=== PATIENT | male | born 1965 | race Caucasian/White ===

== ENCOUNTER → 2017-12-10 08:32 | Outpatient (CLI) | payer OTHER, SELFPAY ==
[2017-12-10 13:56] LABS: Anion Gap 17.4 mEq/L (5-15); Blood Urea Nitrogen 14 mg/dL (7-18); Calcium 8.2 mg/dL (8.5-10.1); Carbon Dioxide 24 mmol/L (21.0-32.0); Chloride 105 mmol/L (98-107); Creatinine,Serum 1.05 mg/dL (0.70-1.30); Estimated Glomerular Filt Rate 74 ml/min (>60); GFR (African American) 90 ML/MIN (>60); Glucose 141 mg/dL (74-106); Potassium 4.4 mmoL/L (3.5-5.1); Sodium 142 mmol/L (136-145)
[2017-12-10 14:21] LABS: Hemoglobin A1C 6.1 % (0.0-7.0)
== END ==
PROVIDERS: Visit Provider Emergency Medicine
DX: E11.9 Type 2 diabetes mellitus without complications (principal); N18.9 Chronic kidney disease, unspecified
CPT/HCPCS: 36415; 80048; 83036

== ENCOUNTER → 2018-06-02 08:24 | Outpatient (CLI) | payer OTHER, SELFPAY ==
[2018-06-02 08:30] LABS: Microscopic, Urine URINE MICROSCOPIC (MICROSCOPIC)
[2018-06-02 13:43] LABS: Appearance,Urine CLEAR (Clear); Bilirubin,Urine Negative (Negative); Blood, Urine 1+ (Negative); Color,Urine YELLOW (Yellow); Glucose,Urine (UA) Negative (Negative); Ketones,Urine Negative (Negative); Leukocyte Esterase,Urine Negative (Negative); Nitrate,Urine Negative (Negative); PH,Urine 5.5 (5.0-8.5); Protein,Urine Negative (Negative); Urobilinogen,Urine 0.2 EU/dl (0.2)
[2018-06-02 13:52] LABS: Bacteria,Urine Trace /lpf; RBC,Urine Occasional #/hpf (0-3); Squamous Epithelial Cell,Urine Occasional #/hpf (0-5)
[2018-06-02 14:03] LABS: Alanine Aminotransferase 32 U/L (12-78); Aspartate Amino Transferase 12 U/L (15-37); Creatinine,Serum 1.17 mg/dL (0.70-1.30); Estimated Glomerular Filt Rate 65 ml/min (>60); GFR (African American) 79 ML/MIN (>60)
[2018-06-02 14:33] LABS: Basophils # 0.1 K/mm3 (0-0.2); Eosinophils # 0.3 K/mm3 (0.0-0.4); Eosinophils % 2.8 % (0.1-12.0); Hemoglobin 17.5 g/dL (14.1-18.0); Lymphocytes # 1.4 K/mm3 (0.7-4.5); Lymphocytes % 14.5 % (10-50); Mean Corpuscular HGB Conc 31.8 g/dL (31.8-35.4); Mean Corpuscular Hemoglobin 30.6 pg (27.0-31.2); Mean Corpuscular Volume 96.2 fl (80-94); Mean Platelet Volume 9.5 fl (7.4-10.4); Monocytes # 0.6 K/mm3 (0.1-1.0); Monocytes % 5.7 % (1.7-9.3); Neutrophils # 7.5 K/mm3 (1.8-7.8); Platelet Count 212 K/mm3 (142-424); Red Blood Count 5.72 M/mm3 (4.60-6.20); Red Cell Distribution Width 14.2 % (11.5-17.5); White Blood Count 9.9 K/mm3 (4.8-10.8)
== END ==
PROVIDERS: PCP Emergency Medicine; Visit Provider Emergency Medicine
DX: Z79.899 Other long term (current) drug therapy (principal)
CPT/HCPCS: 36415; 81001; 82565; 84450; 84460; 85025

== ENCOUNTER → 2019-04-04 08:31 | Outpatient (CLI) | payer OTHER, SELFPAY ==
[2019-04-04 08:36] LABS: Microscopic, Urine URINE MICROSCOPIC (MICROSCOPIC)
[2019-04-04 14:27] LABS: Basophils # 0.1 K/mm3 (0-0.2); Eosinophils # 0.2 K/mm3 (0.0-0.4); Eosinophils % 2.4 % (0.1-12.0); Hematocrit 52.2 % (42.0-52.0); Hemoglobin 16.5 g/dL (14.1-18.0); Lymphocytes # 1.2 K/mm3 (0.7-4.5); Lymphocytes % 12.9 % (10-50); Mean Corpuscular HGB Conc 31.5 g/dL (31.8-35.4); Mean Corpuscular Hemoglobin 31.9 pg (27.0-31.2); Mean Corpuscular Volume 101.2 fl (80-94); Mean Platelet Volume 9.8 fl (7.4-10.4); Monocytes # 0.5 K/mm3 (0.1-1.0); Monocytes % 5.5 % (1.7-9.3); Neutrophils % 78.2 % (37.0-80.0); Platelet Count 229 K/mm3 (142-424); Red Blood Count 5.16 M/mm3 (4.60-6.20); Red Cell Distribution Width 13.9 % (11.5-17.5); White Blood Count 8.9 K/mm3 (4.8-10.8)
[2019-04-04 15:00] LABS: Alanine Aminotransferase 23 U/L (12-78); Albumin Level 3.4 gm/dL (3.4-5.0); Alkaline Phosphatase 76 U/L (46-116); Anion Gap 12.2 mEq/L (5-15); Aspartate Amino Transferase 12 U/L (15-37); Bilirubin,Total 0.9 mg/dL (0.2-1.0); Blood Urea Nitrogen 12 mg/dL (7-18); Calcium 8.3 mg/dL (8.5-10.1); Carbon Dioxide 29 mmol/L (21.0-32.0); Chloride 106 mmol/L (98-107); Chol/HDL Ratio 3.6 (1-3.5); Cholesterol 123 mg/dL (140-200); Creatine Kinase 157 U/L (39-308); Creatinine,Serum 1.03 mg/dL (0.70-1.30); Estimated Glomerular Filt Rate 76 ml/min (>60); GFR (African American) 91 ML/MIN (>60); Globulin 3.5 gm/dl (1.3-3.2); Glucose 138 mg/dL (74-106); HDL Cholesterol 34 mg/dL (27-67); LDL Cholesterol 75 mg/dL (0-130); Potassium 4.2 mmoL/L (3.5-5.1); Prostate Specific Ag Screen 0.8 ng/mL (0.0-4.0); Sodium 143 mmol/L (136-145); Thyroid Stimulating Hormone 1.97 uIU/ml (0.358-3.740); Total Protein,Serum 6.9 gm/dL (6.4-8.2); Triglycerides 68 mg/dL (30-200); VLDL Cholesterol 14 mg/dL (0-40)
[2019-04-04 15:21] LABS: Appearance,Urine CLEAR (Clear); Bilirubin,Urine Negative (Negative); Blood, Urine 1+ (Negative); Color,Urine YELLOW (Yellow); Glucose,Urine (UA) Negative (Negative); Ketones,Urine Negative (Negative); Leukocyte Esterase,Urine Negative (Negative); Nitrate,Urine Negative (Negative); PH,Urine 5.5 (5.0-8.5); Protein,Urine Negative (Negative); Specific Gravity, Urine 1.015 (1.005-1.030); Urobilinogen,Urine 0.2 EU/dl (0.2)
[2019-04-04 16:09] LABS: Squamous Epithelial Cell,Urine Occasional #/hpf (0-5)
[2019-04-04 17:11] LABS: Hemoglobin A1C 6.1 % (0.0-7.0)
[2019-04-06 08:21] LABS: Folate 13.8 ng/mL (>3.0); Microalbumin, Urine 16.5 ug/mL (Not Estab.); Vitamin B12 347 pg/mL (232-1245); Vitamin D 25 Hydroxy 31.2 ng/mL (30.0-100.0)
== END ==
PROVIDERS: PCP Emergency Medicine; Visit Provider Emergency Medicine
DX: I10 Essential (primary) hypertension (principal); E11.9 Type 2 diabetes mellitus without complications; E66.3 Overweight; D51.9 Vitamin B12 deficiency anemia, unspecified; M83.2 Adult osteomalacia due to malabsorption; R53.83 Other fatigue; G47.33 Obstructive sleep apnea (adult) (pediatric)
CPT/HCPCS: 36415; 80053; 80061; 81001; 82043; 82550; 82607; 82652; 82746; 83036; 84443; 85025; G0103

== ENCOUNTER → 2021-08-28 06:14 | Outpatient (CLI) | payer MEDICAID, SELFPAY ==
--- NOTE | 2021-08-28 06:15 | CA_ITS ---
APPROVED REPORT Exam: Pharmacologic Technologist: Yarelis Ramos, Ht: 6 ft 3 in Wt: 332 lbs BSA: 2.72 m2 HR: 88 bpm BP: 150/100 mmHg Medical History Medications: Lisinopril,,,,, Aspirin,,,,, Carvedilol,,,,, Lasix,,,,, SyMBICORT,,,,, Lipitor,,,,, Albuterol,,,,, Fexofenadine,,,,, Apixaban,,,,, Metformin ER,,,,, DilTiazem HCI,,,,, PaROXETINE HCI,,,,, Stress Test Details Test: LEXISCAN HR Resting HR: 89 bpm Max Heart Rate (APMHR): 164.158837 bpm Max HR Achieved: 112 bpm Target HR (85% APMHR): 139.188669 bpm % of APMHR: 68.29 Recovery HR: 89 bpm BP Resting BP: 150/100 mmHg Max BP: 159/108 mmHg Recovery BP: 149.0/107.0 mmHg ECG Resting ECG: Afib, controlled rate, NST wave abns inferiorly Clinical Exercise duration: 04:00 min Highest Stage Achieved: Exercise capacity: 1.0 METs Stress ECG Conclusion Symptoms: SOA, mild head discomfort. No CP. Arrhythmias/Ectopy: Occ PVC vs aberrantly conducted beat. ST-T Changes: No significant changes. Conclusion: Unremarkable Lexiscan stress. Myoview images reported separately. Electronically signed by : Toni Bal MD 08/28/2021 19:19:32
--- NOTE | 2021-08-28 06:15 | NM_ITS ---
APPROVED REPORT Exam: Nuclear Stress Test Indication: OBESITY, HTN, DM, TOB USE, SOB, ABN EKG, HYPERLIPIDEMIA, SLEEP APNEA Patient Location: Outpatient Stress Tech: Yarelis Segovia [place] Tech:Trudy Roque, ARRT, RT (R)(N) Ht: 6 ft 3 in Wt: 330 lbs HR: 88 bpm BP: 150/100 mmHg BSA: 2.71 m2 BMI: 41.2 History: OBESITY, HTN, DM, TOB USE, SOB, ABN EKG, HYPERLIPIDEMIA, SLEEP APNEA Procedure: Patient received a 0.4 mg of intravenous Lexiscan, resting heart rate 88 bpm, resting blood pressure 150/100 mmHg, with Lexiscan maximum heart rate achived was 98 bpm which is Less than 85 % of the maximum predicted heart rate and blood pressure was 159/108 mmHg. With Lexiscan, patient denied any complaint of chest pain. SOA Electrocardiogram Resting electrocardiogram shows atrial fibrillation, with Lexiscan there is less than 1.[address] segment depression noted from the baseline EKG. The EKG portion of the Lexiscan is nondiagnostic. Cardiac Stress and Resting SPECT Images: Cardiac Stress and Resting SPECT images were obtained using technetium 99m Myoview 31.3 mCi stress and 10.99 mCi at rest. Gated SPECT for analysis of segmental wall motion and calculation of ejection fraction also done. Cardiac stress and rest for future uniform myocardial activity without segmental perfusion abnormality, computer derived ejection fraction is 57% with no regional wall motion abnormality, right ventricle is normal size and contractility. Conclusion: 1. The EKG portion of the Lexiscan is nondiagnostic. 2. No scintigraphic evidence of reversible ischemia seen, computer derived ejection fraction is 57% with no regional wall motion abnormality, right ventricle is normal size and contractility. 3. Normal Lexiscan Myoview study. Electronically signed by : Toni Bal MD 08/28/2021 19:22:12
--- NOTE | 2021-08-28 08:08 | HMH.ITSHM ---
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 []ZOLIPIDEM VITAMIN B VITAMIN C TIMOLOL PAROXETINE METFORMIN CARVEDILOL LISINOPRIL FUROSEMIDE FOLIC ACID FEXOFENADINE VITAMIN D2 DILTIAZEM BUDESONIDE ATORVASTATIN ASA APIXABAN ALBUTEROL
== END ==
PROVIDERS: PCP Internal Medicine Adolescent Medicine; Visit Provider Nurse Practitioner Family
DX: R06.00 Dyspnea, unspecified (principal); I48.91 Unspecified atrial fibrillation; E11.9 Type 2 diabetes mellitus without complications; E66.9 Obesity, unspecified; E78.5 Hyperlipidemia, unspecified; F17.200 Nicotine dependence, unspecified, uncomplicated; G47.33 Obstructive sleep apnea (adult) (pediatric); R94.31 Abnormal electrocardiogram [ECG] [EKG]; Z68.41 Body mass index [BMI] 40.0-44.9, adult
CPT/HCPCS: 78452; 93017; A9502; J2785

== ENCOUNTER → 2021-09-10 20:24 | Outpatient (CLI) | payer MEDICAID, SELFPAY | PROVIDERS: PCP Internal Medicine Adolescent Medicine; Visit Provider Specialist | DX: G47.33 Obstructive sleep apnea (adult) (pediatric) (principal); R09.02 Hypoxemia; I10 Essential (primary) hypertension; I48.91 Unspecified atrial fibrillation | CPT/HCPCS: 95810 ==

== ENCOUNTER 2021-09-16 18:21 | Emergency (ER) | payer MEDICAID, SELFPAY ==
[2021-09-16 18:22] VITALS: BP 192/125; PULSE 99; RESP 19; TEMP 36.7; O2SAT 93; BMI 50.5
--- NOTE | 2021-09-16 19:25 | XR_ITS ---
PROCEDURE INFORMATION: Exam: XR Chest Exam date and time: 09/16/2021 7:26 PM Age: 56 years old Clinical indication: Smoker's cough; Patient HX: Cough smoker TECHNIQUE: Imaging protocol: XR of the chest. Views: 2 views. COMPARISON: No relevant prior studies available. FINDINGS: Lungs: Unremarkable. No consolidation. Pleural spaces: Unremarkable. No pleural effusion. No pneumothorax. Heart/Mediastinum: Unremarkable. No cardiomegaly. Bones/joints: Unremarkable. IMPRESSION: No acute findings.
--- NOTE | 2021-09-16 19:58 | HMH.EDUTC ---
[facility] [place] Clinical Impression: COPD exacerbation Disposition: Home, Self-Care Condition on Discharge: Good Instructions: DI for Chronic Obstructive Pulmonary Disease Additional Instructions: Drink plenty of fluids. Take tylenol or ibuprofen for pain or fever. Take the medications as directed. Follow up with your regular doctor. GO TO THE ER FOR ANY WORSENING SYMPTOMS Don't start the oral steroids until tomorrow, since you had the shot here today. Follow up with your pcp regarding your blood pressure. It came down today, but it is going too high. Prescriptions: Amoxicillin/Potassium Clav [Amox-Clav 875-125 mg Tablet] 1 tab PO BID #20 tab [facility]: [facility] Benzonatate [Benzonatate 100mg cap] 100 mg PO TIDP PRN #30 cap PRN Reason: Cough Transmission Status: Received by [facility] methylPREDNISolone [Medrol] 4 mg PO DIRECTED 6 Days #21 packet Transmission Status: Received by [facility] guaiFENesin [Mucinex 600mg tablet] 1 - 2 tab PO BIDP PRN #30 tab PRN Reason: Congestion [facility] Referrals: Anthony Goyal MD [Primary Care Provider] - Time of Disposition: 20:23 Medical Decision Making - Medical Records Medical records reviewed: No: I reviewed the patient's medical records. - Miguel Inquiry Pt receiving controlled substance: No Vital Signs: 09/16/21 18:22 09/16/21 20:49 Temperature 98.1 F 98.1 F Temperature Source Oral Oral Pulse Rate 99 H Pulse Rate [Right Radial] 99 H Respiratory Rate 19 20 Blood Pressure 166/98 H Blood Pressure [Right Arm] 192/125 H Blood Pressure Mean [Right Arm] 147 Blood Pressure Source Automatic Cuff Blood Pressure Source [Right Arm] Automatic Cuff Blood Pressure Position Sitting Blood Pressure Position [Right Arm] Sitting 02 Sat by Pulse Oximetry 93 L Oxygen Delivery Method Room Air Room Air - Lab Data Lab results reviewed: Yes: I reviewed the patient's lab results. Lab Results 09/16/21 20:04: Influenza Type A Ag Negative, Influenza Type B Ag Negative Orders (Tests/Meds): ED MEDICATIONS Discontinued Medications Generic Name Dose Route Start Last Admin Trade Name Freq PRN Reason Stop Dose Admin Ceftriaxone Sodium 1 gm 09/16/21 20:04 09/16/21 20:11 Ceftriaxone 1gm Vial IM 09/16/21 20:05 1 gm ONCE ONE Administration Lidocaine HCl 0 ml 09/16/21 20:04 09/16/21 20:12 Lidocaine 1% 5ml Pf Vial IM 09/16/21 20:05 2 ml ONCE ONE Administration Methylprednisolone Sodium Succinate 125 mg 09/16/21 20:04 09/16/21 20:11 Methylprednisolone Sod Succ 125mg Vial IM 09/16/21 20:05 125 mg ONCE ONE Administration [facility] [place] HPI - General Stated complaint: cough,SOA,runny nose Time Seen by Provider: 09/16/21 19:58 Mode of Arrival: Ambulatory Source of Information: Patient Limitations: No Limitations Description of Symptoms (Recalled from Triage Doc. by RN): Pt stated that he has COPD and tight in his chest. He feels like he has SOB we took his O2 sat and it was 93%. HEENT Symptoms (Recalled from RN notes): No Resp Symptoms (Recalled from RN notes): Yes Skin Symptoms (Recalled from RN notes): No MS Symptoms (Recalled from RN notes): No Functional Status (Recalled from RN notes): n/a - History of Present Illness Provider Complaint: He states that he has a history of copd. Over the past few days he has been getting more and more congested. - Related Data Home Medications Medication Instructions Recorded Confirmed albuterol sulfate 90 mcg/actuation 2 puff INHALATION BID PRN g 08/07/21 09/04/21 aerosol inhaler apixaban 5 mg tablet 5 mg PO BID tab 08/07/21 09/04/21 aspirin 81 mg capsule 81 mg PO DAILY 08/07/21 09/04/21 atorvastatin 10 mg tablet 10 mg PO HS tab 08/07/21 09/04/21 budesonide-formoterol HFA 160 2 inh INHALATION BID g 08/07/21 09/04/21 mcg-4.5 mcg/actuation aerosol
[2021-09-16 20:21] LABS: UTC Influenza A Antigen Negative (Negative); UTC Influenza B Antigen Negative (Negative)
[2021-09-16 20:49] VITALS: BP 166/98; PULSE 99; RESP 20; TEMP 36.7; O2SAT 93
== END 2021-09-16 20:49 | disposition home or self-care (01) ==
PROVIDERS: Emergency Provider Nurse Practitioner Family; PCP Internal Medicine Adolescent Medicine
DX: J44.1 Chronic obstructive pulmonary disease with (acute) exacerbation (principal); I48.0 Paroxysmal atrial fibrillation; I10 Essential (primary) hypertension; F17.210 Nicotine dependence, cigarettes, uncomplicated
CPT/HCPCS: 71046; 87804; 96372; 99213; G0463; J0696

== ENCOUNTER 2021-09-22 17:09 | Emergency (ER) | payer MEDICAID, SELFPAY ==
[2021-09-22 17:04] VITALS: BP 168/116; PULSE 98; O2SAT 93
--- NOTE | 2021-09-22 17:22 | HMH.EDSOB ---
ED Disposition Clinical Impression: Acute exacerbation of chronic obstructive airways disease Disposition: Home, Self-Care Condition on Discharge: Fair Additional Instructions: Follow-up with your hand cigar maker of your choice within the next week or so. Return to the emergency department if worse in any way. Continue taking all medications as prescribed. Low up with your sales professional within about 1 week also. Referrals: Anthony Goyal MD [Primary Care Provider] - - Critical Care Critical Care Time: No Attestation: On 09/22/21, the high probability of a clinically significant, sudden or life threatening deterioration of the following system(s) required my full and direct attention, intervention and personal management. The time I documented below is in addition to time spent performing reported procedures but includes the following listed in this critical care notation. Medical Decision Making - Miguel Inquiry Pt receiving controlled substance: No Vital Signs: 09/22/21 17:04 09/22/21 17:31 09/22/21 18:01 Pulse Rate 98 H 92 H 92 H Respiratory Rate 22 Blood Pressure 168/116 H 132/86 135/84 Blood Pressure Mean 101 02 Sat by Pulse Oximetry 93 L 92 L 91 L Oxygen Delivery Method Nasal Cannula Nasal Cannula Oxygen Flow Rate (LPM) 4 4 09/22/21 18:30 Pulse Rate 85 Respiratory Rate Blood Pressure Blood Pressure Mean 02 Sat by Pulse Oximetry 92 L Oxygen Delivery Method Oxygen Flow Rate (LPM) - Lab Data Lab results reviewed: Yes: I reviewed the patient's lab results. Lab Results 09/22/21 17:23: WBC 14.0 H, RBC 5.70, Hgb 17.9, Hct 54.2 H, MCV 95.2 H, MCH 31.5 H, MCHC 33.1, RDW 13.8, Plt Count 224, MPV 9.5, Neut % (Auto) 87.9 H, Lymph % (Auto) 6.6 L, Worth % (Auto) 4.5, Eos % (Auto) 0.1, Baso % (Auto) 0.8, Neut # (Auto) 12.3 H, Lymph # (Auto) 0.9, Worth # (Auto) 0.6, Eos # (Auto) 0.0, Baso # (Auto) 0.1, Total Counted 100, Neutrophils % (Manual) 87 H, Band Neutrophils % 1.0, Lymphocytes % (Manual) 8 L, Monocytes % (Manual) 3, Eosinophils % (Manual) 1, Platelet Estimate Normal, RBC Morphology Normal 09/22/21 17:23: Sodium 135 L, Potassium 3.9, Chloride 102, Carbon Dioxide 30, Anion Gap 6.9, BUN 15, Creatinine 0.60 L, Estimated Creat Clear 278, Estimated GFR 139, Est GFR ( Amer) 169, Glucose 191 H, Calcium 7.9 L, NT-Pro-B Natriuret Pep 233 H Result diagrams: 09/22/21 17:23 09/22/21 17:23 - Radiology Data #1 Image(s): Chest Image Reviewed: Yes I reviewed the patient's radiology image, Yes I have reviewed radiologist's interpretation Preliminary Findings: Normal/NAD Medical Decision Narrative: The patient's work-up in the emergency department did not reveal any life-threatening or dangerous causes for the patient's shortness of breath and cough. His chest x-ray is unremarkable. He does have lower extremity edema on the left. However the patient is on Eliquis for atrial fibrillation. Therefore I do not believe that the patient's shortness of breath is secondary to pulmonary embolus. Does have a history of COPD. I believe that most of the patient's dyspnea can be attributed to COPD exacerbation. He is currently on Levaquin as well as a Medrol Dosepak. He also received parenteral steroids in the ambulance on the way to the emergency department. I feel that the patient can be safely discharged home at this time with instructions to follow-up with a hand cigar maker within the next week or so. Resp/SOB HPI - General Chief Complaint: Shortness of Breath/Dyspnea Stated Complaint: SOA Time Seen by Provider: 09/22/21 17:22 Mode of Arrival: EMS Source of Information: Patient, EMS - History of Present Illness The patient presents to the emergency department by ambulance because he feels short of breath. Was recently seen in the office and diagnosed with pneumonia on physical exam and started on Levaquin. The patient has a history of COPD. Prior to the office visit he was seen here at the
[2021-09-22 17:31] VITALS: BP 132/86; PULSE 92; RESP 22; O2SAT 92
--- NOTE | 2021-09-22 17:39 | XR_ITS ---
PROCEDURE INFORMATION: Exam: XR Chest Exam date and time: 09/22/2021 5:42 PM Age: 56 years old Clinical indication: Patient HX: Dyspnea, fever, no chest surgeries. Smoker. TECHNIQUE: Imaging protocol: XR of the chest. Views: 1 view. COMPARISON: CR XR CHEST 2V 09/16/2021 7:26 PM FINDINGS: Lungs: Unremarkable. No consolidation. Pleural spaces: Unremarkable. No pleural effusion. No pneumothorax. Heart/Mediastinum: Unremarkable. No cardiomegaly. Bones/joints: Unremarkable. IMPRESSION: No acute findings.
[2021-09-22 17:49] VITALS: BMI 39.4
[2021-09-22 18:01] VITALS: BP 135/84; PULSE 90; PULSE 92; O2SAT 91; O2SAT 93
[2021-09-22 18:08] LABS: Basophils # 0.1 K/mm3 (0-0.2); Basophils % 0.8 % (0.1-2.0); Eosinophils % 0.1 % (0.1-12.0); Hematocrit 54.2 % (42.0-52.0); Hemoglobin 17.9 g/dL (14.1-18.0); Lymphocytes # 0.9 K/mm3 (0.7-4.5); Lymphocytes % 6.6 % (10-50); Mean Corpuscular HGB Conc 33.1 g/dL (31.8-35.4); Mean Corpuscular Hemoglobin 31.5 pg (27.0-31.2); Mean Corpuscular Volume 95.2 fl (80-94); Mean Platelet Volume 9.5 fl (7.4-10.4); Monocytes # 0.6 K/mm3 (0.1-1.0); Monocytes % 4.5 % (1.7-9.3); Neutrophils # 12.3 K/mm3 (1.8-7.8); Neutrophils % 87.9 % (37.0-80.0); Platelet Count 224 K/mm3 (142-424); Red Cell Distribution Width 13.8 % (11.5-17.5)
[2021-09-22 18:09] LABS: Chloride 102 mmol/L (98-107); Potassium 3.9 mmoL/L (3.5-5.1); Sodium 135 mmol/L (136-145)
[2021-09-22 18:10] LABS: MANUAL DIFFERENTIAL MANUAL DIFFERENTIAL (MANUAL DIFF)
--- NOTE | 2021-09-22 18:11 | PC.NURSE ---
pt spoke with waiting results. in room with
[2021-09-22 18:12] LABS: Blood Urea Nitrogen 15 mg/dl (9-20); Creatinine Clearance Estimated 278 mL/min (50-200); Estimated Glomerular Filt Rate 139 ml/min (>60); GFR (African American) 169 ML/MIN (>60)
[2021-09-22 18:13] LABS: Anion Gap 6.9 mEq/L (5-15); Calcium 7.9 mg/dl (8.4-10.2); Carbon Dioxide 30 mmol/L (22.0-30.0); Glucose 191 mg/dl (74-100)
[2021-09-22 18:22] LABS: NT Pro Brain Natriuretic Pep. 233 pg/mL (0-125)
[2021-09-22 18:25] LABS: Eosinophils % 1 % (0-3); Lymphocytes % 8 % (10-50); Monocytes % 3 % (2-9); Neutrophils % 87 % (42-76); Platelet Estimate Normal; RBC Morphology Normal; Total Cells Counted 100
[2021-09-22 18:30] VITALS: PULSE 85; O2SAT 92
--- NOTE | 2021-09-22 18:38 | PC.NURSE ---
Went in and updated pt and family we were waiting on one more blood test but his chest x-ray was clear. Gave pt drink, no other needs at this time
[2021-09-22 19:17] VITALS: BP 134/80; PULSE 85; RESP 16; TEMP 36.8; O2SAT 94
== END 2021-09-22 19:18 | disposition home or self-care (01) ==
PROVIDERS: Emergency Provider Emergency Medicine; PCP Internal Medicine Adolescent Medicine
DX: J44.1 Chronic obstructive pulmonary disease with (acute) exacerbation (principal); R94.31 Abnormal electrocardiogram [ECG] [EKG]; I10 Essential (primary) hypertension; I48.91 Unspecified atrial fibrillation; E11.9 Type 2 diabetes mellitus without complications; G47.33 Obstructive sleep apnea (adult) (pediatric); E66.9 Obesity, unspecified; F17.210 Nicotine dependence, cigarettes, uncomplicated; Z79.01 Long term (current) use of anticoagulants; Z79.51 Long term (current) use of inhaled steroids; Z79.82 Long term (current) use of aspirin; Z79.84 Long term (current) use of oral hypoglycemic drugs; Z79.899 Other long term (current) drug therapy; Z68.39 Body mass index [BMI] 39.0-39.9, adult; Z82.49 Family history of ischemic heart disease and other diseases of the circulatory system; Z83.3 Family history of diabetes mellitus
CPT/HCPCS: 71045; 80048; 83880; 85007; 85025; 99284

== ENCOUNTER 2023-08-03 19:22 | Outpatient (CLI) | payer MEDICAID, SELFPAY | END 2023-08-03 23:59 | LOC: LAB.DROPOF 19:22 | PROVIDERS: PCP Nurse Practitioner; Visit Provider Nurse Practitioner | DX: M79.675 Pain in left toe(s) (principal); B35.1 Tinea unguium | CPT/HCPCS: 87102; 87206; 87220 ==

== ENCOUNTER 2024-01-08 12:50 | Emergency (ER) | payer MEDICAID, SELFPAY ==
[2024-01-08] VITALS (9 sets, daily range): BP systolic 116–120; BP diastolic 71–78; PULSE 91–109; RESP 18; TEMP 36.7; O2SAT 93–98; BMI 37.5
[2024-01-08 13:48] LABS: Chloride 104 mmol/L (98-107); Potassium 4.1 mmoL/L (3.5-5.1); Sodium 135 mmol/L (136-145)
[2024-01-08 13:48] LABS: Microscopic, Urine URINE MICROSCOPIC (MICROSCOPIC)
[2024-01-08 13:50] LABS: Blood Urea Nitrogen 12 mg/dl (9-20); Creatinine Clearance Estimated 155 mL/min (50-200); Estimated Glomerular Filt Rate 77 ml/min (>60); GFR (African American) 93 ML/MIN (>60)
[2024-01-08 13:50] LABS: VBG Base Excess -8.7 mmol/L (-2.4-2.3); VBG HCO3 17.4 mmol/L (23-30); VBG Oxygen Saturation 79.6 % (50-70); VBG PCO2 34.8 mmol/L (35-51); VBG PH 7.32 mmol/L (7.31-7.41); VBG PO2 46.1 mmol/L (28-40); VBG Total CO2 18.5 mmol/L (23-27)
[2024-01-08 13:51] LABS: Lactate Venous 2.8 mmol/L (0.4-2.0)
[2024-01-08 13:51] LABS: Appearance,Urine SL CLOUDY (Clear); Blood, Urine 2+ (Negative); Color,Urine YELLOW (Yellow); Glucose,Urine (UA) 3+ (Negative); Ketones,Urine 1+ (Negative); Leukocyte Esterase,Urine Negative (Negative); Nitrate,Urine Negative (Negative); Protein,Urine 1+ (Negative); Specific Gravity, Urine 1.025 (1.005-1.030); Urobilinogen,Urine 0.2 EU/dl (0.2)
[2024-01-08 13:51] LABS: Alanine Aminotransferase 55 U/L (12-78); Albumin/Globulin Ratio 1.3 (1.1-1.8); Alkaline Phosphatase 80 U/L (38-126); Anion Gap 15.1 mEq/L (5-15); Aspartate Amino Transferase 40 U/L (17-59); Bilirubin,Total 2.4 mg/dl (0.2-1.3); Calcium 8.7 mg/dl (8.4-10.2); Carbon Dioxide 20 mmol/L (22.0-30.0); Globulin 3.1 g/dL (1.3-3.2); Glucose 201 mg/dl (74-100); Lipase 30 U/L (23-300); Total Protein,Serum 7.1 g/dl (6.3-8.2)
--- NOTE | 2024-01-08 13:56 | [facility].EDGENADL ---
Discharge Plan Disposition Patient Disposition: Home, Self-Care Condition: Good Prescriptions Prescriptions: New phenazopyridine [Pyridium] 200 mg tablet 200 mg PO Q8H PRN (Reason: pain) Qty: 6 0RF ketorolac 10 mg tablet 10 mg PO Q8H PRN (Reason: pain) Qty: 5 0RF ciprofloxacin HCl 500 mg tablet 500 mg PO BID Qty: 20 0RF No Action albuterol sulfate 90 mcg/actuation HFA aerosol inhaler 2 puff INHALATION BID PRN Patient Comments: INHALE 2 PUFFS BY MOUTH EVERY 4 HOURS NEEDED FOR COUGH/WHEEZING timolol maleate 0.5 % drops, once daily OPHTHALMIC metformin 500 mg tablet extended release 24 hr 500 mg PO BID Patient Comments: TAKE 1 TABLET BY MOUTH TWICE DAILY paroxetine HCl 40 mg tablet 40 mg PO DAILY Patient Comments: TAKE 1 TABLET BY MOUTH ONCE DAILY aspirin 81 mg capsule 81 mg PO DAILY folic acid 1 mg tablet 1 mg PO DAILY Patient Comments: TAKE 1 TABLET BY MOUTH ONCE DAILY furosemide 20 mg tablet 20 mg PO DAILY Patient Comments: TAKE 1 TABLET BY MOUTH ONCE DAILY atorvastatin 10 mg tablet 10 mg PO HS Patient Comments: TAKE 1 TABLET BY MOUTH ONCE DAILY ergocalciferol (vitamin D2) 1,250 mcg (50,000 unit) capsule 50,000 unit PO QMONTH Ocuvite Adult 50 Plus 250-5-1 mg capsule 1 cap PO DAILY Eliquis 5 mg tablet 5 mg PO BID Patient Comments: TAKE 1 TABLET BY MOUTH TWICE DAILY carvedilol 25 mg tablet 25 mg PO BID Patient Comments: TAKE 1 TABLET BY MOUTH TWICE DAILY Tradjenta 5 mg tablet PO Patient Comments: TAKE 1 TABLET BY MOUTH ONCE DAILY insulin glargine [Lantus Solostar U-100 Insulin] 100 unit/mL (3 mL) insulin pen SQ (DME) pen needle, diabetic [BD Ultra-Fine Mini Pen Needle] 31 gauge x 3/16 needle See Rx Instructions .ROUTE .MEDSUPPLY Qty: 1200 Rx Instructions: As directed triamcinolone acetonide 55 mcg aerosol,spray intranasal diltiazem HCl [DILT-XR] 240 mg capsule,ext.rel 24h degradable PO levocetirizine 5 mg tablet PO cyanocobalamin (vitamin B-12) 1,000 mcg tablet PO dapagliflozin propanediol [Farxiga] 10 mg tablet PO Patient Comments: TAKE 1 TABLET BY MOUTH ONCE DAILY lisinopril 20 mg tablet See Rx Instructions .ROUTE .COMPLEX Qty: 90 4RF Dose Instruction: Take 1 tablet by mouth once daily Rx Instructions: Take 1 tablet by mouth once daily Referrals Follow up/Referrals: Anthony Goyal MD [Primary Care Provider] - See instructions Activity Restrictions/Add. Instructions Additional Instructions/Restrictions: You were evaluated in the emergency department today. Please follow-up very closely with your primary care provider over the next several days for reassessment. 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 You may also take Tylenol every 4-6 hours as needed for pain. Return to the emergency department for new or worsening symptoms, such as fever greater than 100.4 ?F, significant worsening in pain, intractable nausea and vomiting, or other concerns. Clinical Impressions Clinical Impression: Acute pyelonephritis, Dehydration, Prostatitis Stand Alone Forms Stand Alone Forms: Work/School Release Instructions Patient Instructions: DI for Urinary Tract Infection (UTI) Print Language Print Language: Kazakh Discharge ED Provider: Izabela Coleman General Adult HPI <Pj Mckenzie MD - Last Filed: 01/08/24 16:00> General Chief complaint: Weakness Stated complaint: weakness, pain in lower back area, Time Seen by Provider: 01/08/24 13:15 Mode of Arrival: Ambulatory Source of Information: Patient and Relative Limitations: No Limitations Description of Symptoms (Recalled from ER Triage Doc. by RN): 58 y/o male patient from home, reports fever, frequency and burning with urination for past couple of days family reports that patient experienced a syncopal event today while getting dressed to go to appoinment with pcp but did not fall or lose consciousness. History of Present Illness HPI narrative: Please note that above description of symptoms, in this electronic medical record under categorization of recalled from ER triage doctor by RN are reflective of an initial nursing assessment, however, is not reflective of my full history and physical exam that was personally taken and clarified. Consequentially, this preceding description of symptoms, which may include the patient's categorized chief complaint in the EMR, do not reflect my personal clinical impression, and the ultimate description of history of present illness and patient stated complaints should be deferred to this section of the note. Unless stated otherwise or congruent with this section of the note, additional signs, symptoms, or incongruence should be interpreted as inaccurate with my clinical impression. Related Data Home Medications ?Medication ?Instructions ?Recorded ?Confirmed albuterol sulfate 90 mcg/actuation 2 puff inhalation BID PRN 08/07/21 08/03/23 aerosol inhaler apixaban 5 mg tablet (Eliquis) 5 mg PO BID 08/07/21 08/03/23 aspirin 81 mg capsule 81 mg PO DAILY 08/07/21 08/03/23 atorvastatin 10 mg tablet 10 mg PO HS 08/07/21 08/03/23 carvedilol 25 mg tablet 25 mg PO BID 08/07/21 08/03/23 ergocalciferol (vitamin D2) 1,250 50,000 unit PO QMONTH 08/07/21 08/03/23 mcg (50,000 unit) capsule folic acid 1 mg tablet 1 mg PO DAILY 08/07/21 08/03/23 furosemide 20 mg tablet 20 mg PO DAILY 08/07/21 08/03/23 metformin 500 mg tablet,extended 500 mg PO BID 08/07/21 08/03/23 release 24 hr paroxetine HCl 40 mg tablet 40 mg PO DAILY 08/07/21 08/03/23 timolol maleate 0.5 % once daily ml ophthalmic (eye) 08/07/21 08/03/23 eye drops vit C,E,zinc,copper-[id number] 250 1 cap PO DAILY 08/07/21 08/03/23 mg-lutein 5 mg-zeaxanthin 1 mg capsule (Ocuvite Adult 50 Plus) cyanocobalamin (vitamin B-12) mcg PO 08/03/23 08/03/23 1,000 mcg tablet dapagliflozin propanediol 10 mg mg PO 08/03/23 08/03/23 tablet (Farxiga) diltiazem HCl 240 mg mg PO 08/03/23 08/03/23 capsule,extended release 24 hr, controlled (DILT-XR) insulin glargine 100 unit/mL (3 unit SQ 08/03/23 08/03/23 mL) subcutaneous pen (Lantus Solostar U-100 Insulin) levocetirizine 5 mg tablet mg PO 08/03/23 08/03/23 linagliptin 5 mg tablet (Tradjenta) mg PO 08/03/23 08/03/23 pen needle, diabetic 31 gauge x #1,200 ea 02/19/24 02/19/24 3/16 (BD Ultra-Fine Mini Pen Needle) triamcinolone acetonide 55 mcg intranasal 08/03/23 08/03/23 nasal spray aerosol Previous Rx's ?Medication ?Instructions ?Recorded lisinopril 20 mg tablet See Rx Instructions .Route 06/16/23 .COMPLEX #90 tabs ciprofloxacin HCl 500 mg tablet 500 mg PO BID #20 tabs 01/08/24 ketorolac 10 mg tablet 10 mg PO Q8H PRN pain #5 tabs 01/08/24 phenazopyridine 200 mg tablet 200 mg PO Q8H PRN pain 6 doses #6 01/08/24 (Pyridium) tabs Allergies Allergy/AdvReac Type Severity Reaction Status Date / Time No Known Allergies Allergy Verified 08/03/23 09:49 PFSH <Pj Mckenzie MD - Last Filed: 01/08/24 16:00> PFS Disclaimer: The information contained in this section may have been updated after the patient was seen, as this information can be updated by other users. Medical History Abnormal electrocardiography Atrial fibrillation Diabetes mellitus Dyspnea Obesity LIAM (obstructive sleep apnea) Tobacco dependence syndrome Social History Smoking Status: Never smoker alcohol intake: never substance use type: denies use current occupational status: employed Travel in the last 8 weeks: Inside the [place] household members: children housing: house <Pj Mckenzie MD - Last Filed: 01/08/24 16:00> ROS Obtained: Yes All systems reviewed & no additional complaints except as documented Physical Exam <Pj Mckenzie MD - Last Filed: 01/08/24 16:00> General General appearance: alert, in no apparent distress and obese Head Head exam: atraumatic and normocephalic Eye Eye exam: Present normal appearance, PERRL and EOMI Neck Neck exam: Present normal inspection, full ROM and trachea midline Respiratory Respiratory exam: Absent respiratory distress, wheezes, stridor, accessory muscle use or prolonged expiratory phase Cardiovascular Cardiovascular exam: Present other (Pulses equal symmetric in upper and lower extremities) Abdominal Exam Abdominal exam: Present soft; Absent distention, tenderness or pulsatile mass Extremities Exam Extremities exam: Absent edema Neurological Exam Neurological exam: Present alert, oriented X3 and CN II-XII intact; Absent motor sensory deficit Skin Skin exam: Present warm and dry; Absent diaphoresis or erythema Medical Decision Making <Pj Mckenzie MD - Last Filed: 01/08/24 16:00> Medical Records Medical records reviewed: Yes I reviewed the patient's medical records. Miguel Inquiry Pt receiving controlled substance: No Miguel was queried for this patient: No Vital Signs: 01/08/24 12:51 01/08/24 13:47 01/08/24 14:00 Pulse Rate 102 H 96 H Pulse Rate [Right Radial] 103 H Respiratory Rate 18 Blood Pressure [Right Arm] 116/71 Blood Pressure Mean [Right Arm] 86 Blood Pressure Source [Right Arm] Automatic Cuff Blood Pressure Position [Right Arm] Supine 02 Sat by Pulse Oximetry 94 L 95 93 L Oxygen Delivery Method Room Air 01/08/24 14:30 01/08/24 15:00 01/08/24 15:30 Pulse Rate 109 H 102 H 99 H Pulse Rate [Right Radial] Respiratory Rate Blood Pressure [Right Arm] Blood Pressure Mean [Right Arm] Blood Pressure Source [Right Arm] Blood Pressure Position [Right Arm] 02 Sat by Pulse Oximetry 93 L 94 L 93 L Oxygen Delivery Method 01/08/24 16:00 01/08/24 16:30 Pulse Rate 91 H 94 H Pulse Rate [Right Radial] Respiratory Rate Blood Pressure [Right Arm] Blood Pressure Mean [Right Arm] Blood Pressure Source [Right Arm] Blood Pressure Position [Right Arm] 02 Sat by Pulse Oximetry 96 98 Oxygen Delivery Method Lab Data Lab Results 01/08/24 13:06: Urine Color Yellow, Urine Appearance Sl cloudy, Urine pH 6.0, Ur Specific [place] 1.025, Urine Protein 1+, Urine Glucose (UA) 3+, Urine Ketones 1+, Urine Blood 2+, Urine Nitrate Negative, Urine Bilirubin 1+ A, Urine Urobilinogen 0.2, Ur Leukocyte Esterase Negative, Urine RBC 10-20, Urine WBC Occasional, Ur Squamous Epith Cells Occasional, Urine Bacteria Trace 01/08/24 13:25: WBC 19.2 H, RBC 5.16, Hgb 16.4, Hct 51.6, MCV 99.8 H, MCH 31.7 H, MCHC 31.8, RDW 14.1, Plt Count 156, MPV 9.1, Neut % (Auto) 88.9 H, Lymph % (Auto) 4.9 L, [place] % (Auto) 5.6, Eos % (Auto) 0.2, Baso % (Auto) 0.3, Neut # (Auto) 17.1 H, Lymph # (Auto) 0.9, [place] # (Auto) 1.1 H, Eos # (Auto) 0.0, Baso # (Auto) 0.1, Total Counted 100, Neutrophils % (Manual) 89 H, Lymphocytes % (Manual) 6 L, Monocytes % (Manual) 5, Platelet Estimate Normal, RBC Morphology Normal, Sodium 135 L, Potassium 4.1, Chloride 104, Carbon Dioxide 20 L, Anion Gap 15.1 H, BUN 12, Creatinine 1.00, Estimated Creat Clear 155, Estimated GFR 77, Est GFR ( Amer) 93, Glucose 201 H, Calcium 8.7, Total Bilirubin 2.4 H, AST 40, ALT 55, Alkaline Phosphatase 80, Total Protein 7.1, Albumin 4.0, Globulin 3.1, Albumin/Globulin Ratio 1.3, Lipase 30 01/08/24 13:30: VBG pH 7.32, VBG pCO2 34.8 L, VBG pO2 46.1 H, VBG HCO3 17.4 L, VBG Total CO2 18.5 L, VBG O2 Saturation 79.6 H, VBG Base Excess -8.7 L, VBG Lactic Acid 2.8 H 01/08/24 13:55: Lactate 2.6 H 01/08/24 13:25 01/08/24 13:25 Orders (Tests/Meds): ED MEDICATIONS Generic Name Dose Route Start Last Admin Trade Name Freq PRN Reason Stop Dose Admin Ceftriaxone Sodium 2 gm/ 100 mls @ 200 mls/hr 01/08/24 17:00 01/08/24 17:28 Sodium Chloride IV 01/18/24 16:59 200 mls/hr Q24H JERI Administration Sodium Chloride 10 ml 01/08/24 13:46 Sodium Chloride 0.9% 10ml Flush Syringe IV 02/07/24 13:45 NEEDED PRN Maintain IV Site Sodium Chloride 10 ml 01/08/24 15:45 01/08/24 15:47 Sodium Chloride 0.9% 10ml Syr (Rad Only) IV 02/07/24 15:44 10 ml NEEDED PRN Administration Maintain IV Site Discontinued Medications Generic Name Dose Route Start Last Admin Trade Name Joe PRN Reason Stop Dose Admin Lactated Ringer's 1,000 mls @ 999 mls/hr 01/08/24 15:59 01/08/24 16:09 Lactated Ringer's 1000 Ml Bag IV 01/08/24 16:59 999 mls/hr .Q1H1M ONE Administration Iopamidol 75 ml 01/08/24 15:45 01/08/24 15:47 Iopamidol-370 (76%);100ml Bottle IV 01/08/24 15:46 75 ml ONCE ONE Administration Ketorolac Tromethamine 15 mg 01/08/24 15:59 01/08/24 16:09 Ketorolac 30mg/Ml Vial IV 01/08/24 16:00 15 mg ONCE ONE Administration ORDERS Category Date Time Status CT abdomen pelvis w con Stat Cat Scan 01/08/24 15:26 Completed CBC w/Auto Diff [Complete Blood Count Auto Diff] Stat Lab 01/08/24 13:25 Completed CMP [Comprehensive Metabolic Panel] Stat Lab 01/08/24 13:25 Completed Lactic Acid Follow Up (RFLX 1) Stat Lab 01/08/24 17:51 Ordered Lactic Acid Stat Lab 01/08/24 13:55 Completed Lipase Stat Lab 01/08/24 13:25 Completed UA [Urinalysis and Microscopic] Stat Lab 01/08/24 13:06 Completed VBG [Venous Blood Gas] Stat RT 01/08/24 13:30 Completed Medical Decision Narrative: 58-year-old male history of hypertension, hyperlipidemia, COPD not currently smoking or requiring home oxygen, diabetes, A-fib on Eliquis presenting with dysuria. Patient states that he has been having dysuria and frequency since yesterday. No blood in his urine. States that he also developed a fever yesterday in the PM. No flank pain, vomiting, changes in bowel habits, overlying skin changes, new medications, or any other concerns. Also states his glucose has been running high. Usually runs in the mid 100s, was almost 400 this morning. Does not have a reason for that either. Was going to see his family doctor, family doctor recommended he come to the emergency department instead. History was obtained via conversation with patient and family. On arrival, patient hemodynamically stable, alert, [oriented x4, ][appropriate, ]GCS [15], moving all extremities spontaneously, pupils equal and reactive to light. Full physical exam performed and significant for very well-appearing male who is no acute distress. Obese, appropriate. Abdomen soft, nontender, nondistended. No flank tenderness. No overlying skin change. He does have a periumbilical hernia which is reducible. Differential includes UTI, cystitis, nephrolithiasis, prostatitis, diverticulitis, pancreatitis, chronic mesenteric ischemia, among others. Patient placed on continuous cardiac monitoring and continuous pulse ox with initial blood pressure 116/71, heart rate 102, saturation 95% on room air. Patient was given Toradol for symptomatic management[ and correction of underlying abnormalities]. Workup independently interpreted and significant for leukocytosis neutrophilia 19,000. Patient also has metabolic acidosis with respiratory compensation on blood gas. Urinalysis unconcerning, mild ketones. Glucose 200. Lactate 2.6. Results were relayed to patient, he states he still in mild pain. Given Toradol. CT abdomen pelvis ordered, this was pending at time of handoff to oncoming physician, Dr. Coleman. Armor Officer disclaimer Much of this encounter note is an electronic administrative job titles spoken language to printed text. Electronic administrative job titles of the spoken language may permit errors. Although I have reviewed the note, some errors may still exist. <Izabela Coleman, DO - Last Filed: 01/08/24 18:24> Vital Signs: 01/08/24 12:51 01/08/24 13:47 01/08/24 14:00 Pulse Rate 102 H 96 H Pulse Rate [Right Radial] 103 H Respiratory Rate 18 Blood Pressure [Right Arm] 116/71 Blood Pressure Mean [Right Arm] 86 Blood Pressure Source [Right Arm] Automatic Cuff Blood Pressure Position [Right Arm] Supine 02 Sat by Pulse Oximetry 94 L 95 93 L Oxygen Delivery Method Room Air 01/08/24 14:30 01/08/24 15:00 01/08/24 15:30 Pulse Rate 109 H 102 H 99 H Pulse Rate [Right Radial] Respiratory Rate Blood Pressure [Right Arm] Blood Pressure Mean [Right Arm] Blood Pressure Source [Right Arm] Blood Pressure Position [Right Arm] 02 Sat by Pulse Oximetry 93 L 94 L 93 L Oxygen Delivery Method 01/08/24 16:00 01/08/24 16:30 Pulse Rate 91 H 94 H Pulse Rate [Right Radial] Respiratory Rate Blood Pressure [Right Arm] Blood Pressure Mean [Right Arm] Blood Pressure Source [Right Arm] Blood Pressure Position [Right Arm] 02 Sat by Pulse Oximetry 96 98 Oxygen Delivery Method Lab Data Lab Results 01/08/24 13:06: Urine Color Yellow, Urine Appearance Sl cloudy, Urine pH 6.0, Ur Specific [place] 1.025, Urine Protein 1+, Urine Glucose (UA) 3+, Urine Ketones 1+, Urine Blood 2+, Urine Nitrate Negative, Urine Bilirubin 1+ A, Urine Urobilinogen 0.2, Ur Leukocyte Esterase Negative, Urine RBC 10-20, Urine WBC Occasional, Ur Squamous Epith Cells Occasional, Urine Bacteria Trace 01/08/24 13:25: WBC 19.2 H, RBC 5.16, Hgb 16.4, Hct 51.6, MCV 99.8 H, MCH 31.7 H, MCHC 31.8, RDW 14.1, Plt Count 156, MPV 9.1, Neut % (Auto) 88.9 H, Lymph % (Auto) 4.9 L, [place] % (Auto) 5.6, Eos % (Auto) 0.2, Baso % (Auto) 0.3, Neut # (Auto) 17.1 H, Lymph # (Auto) 0.9, [place] # (Auto) 1.1 H, Eos # (Auto) 0.0, Baso # (Auto) 0.1, Total Counted 100, Neutrophils % (Manual) 89 H, Lymphocytes % (Manual) 6 L, Monocytes % (Manual) 5, Platelet Estimate Normal, RBC Morphology Normal, Sodium 135 L, Potassium 4.1, Chloride 104, Carbon Dioxide 20 L, Anion Gap 15.1 H, BUN 12, Creatinine 1.00, Estimated Creat Clear 155, Estimated GFR 77, Est GFR ( Amer) 93, Glucose 201 H, Calcium 8.7, Total Bilirubin 2.4 H, AST 40, ALT 55, Alkaline Phosphatase 80, Total Protein 7.1, Albumin 4.0, Globulin 3.1, Albumin/Globulin Ratio 1.3, Lipase 30 01/08/24 13:30: VBG pH 7.32, VBG pCO2 34.8 L, VBG pO2 46.1 H, VBG HCO3 17.4 L, VBG Total CO2 18.5 L, VBG O2 Saturation 79.6 H, VBG Base Excess -8.7 L, VBG Lactic Acid 2.8 H 01/08/24 13:55: Lactate 2.6 H Orders (Tests/Meds): ED MEDICATIONS Generic Name Dose Route Start Last Admin Trade Name Freq PRN Reason Stop Dose Admin Ceftriaxone Sodium 2 gm/ 100 mls @ 200 mls/hr 01/08/24 17:00 01/08/24 17:28 Sodium Chloride IV 01/18/24 16:59 200 mls/hr Q24H JERI Administration Sodium Chloride 10 ml 01/08/24 13:46 Sodium Chloride 0.9% 10ml Flush Syringe IV 02/07/24 13:45 NEEDED PRN Maintain IV Site Sodium Chloride 10 ml 01/08/24 15:45 01/08/24 15:47 Sodium Chloride 0.9% 10ml Syr (Rad Only) IV 02/07/24 15:44 10 ml NEEDED PRN Administration Maintain IV Site Discontinued Medications Generic Name Dose Route Start Last Admin Trade Name Freq PRN Reason Stop Dose Admin Lactated Ringer's 1,000 mls @ 999 mls/hr 01/08/24 15:59 01/08/24 16:09 Lactated Ringer's 1000 Ml Bag IV 01/08/24 16:59 999 mls/hr .Q1H1M ONE Administration Iopamidol 75 ml 01/08/24 15:45 01/08/24 15:47 Iopamidol-370 (76%);100ml Bottle IV 01/08/24 15:46 75 ml ONCE ONE Administration Ketorolac Tromethamine 15 mg 01/08/24 15:59 01/08/24 16:09 Ketorolac 30mg/Ml Vial IV 01/08/24 16:00 15 mg ONCE ONE Administration ORDERS Category Date Time Status CT abdomen pelvis w con Stat Cat Scan 01/08/24 15:26 Completed CBC w/Auto Diff [Complete Blood Count Auto Diff] Stat Lab 01/08/24 13:25 Completed CMP [Comprehensive Metabolic Panel] Stat Lab 01/08/24 13:25 Completed Lactic Acid Follow Up (RFLX 1) Stat Lab 01/08/24 17:51 Ordered Lactic Acid Stat Lab 01/08/24 13:55 Completed Lipase Stat Lab 01/08/24 13:25 Completed UA [Urinalysis and Microscopic] Stat Lab 01/08/24 13:06 Completed VBG [Venous Blood Gas] Stat RT 01/08/24 13:30 Completed Medical Decision Narrative: 58-year-old male history of hypertension, hyperlipidemia, COPD not currently smoking or requiring home oxygen, diabetes, A-fib on Eliquis presenting with dysuria. Patient states that he has been having dysuria and frequency since yesterday. No blood in his urine. States that he also developed a fever yesterday in the PM. No flank pain, vomiting, changes in bowel habits, overlying skin changes, new medications, or any other concerns. Also states his glucose has been running high. Usually runs in the mid 100s, was almost 400 this morning. Does not have a reason for that either. Was going to see his family doctor, family doctor recommended he come to the emergency department instead. History was obtained via conversation with patient and family. On arrival, patient hemodynamically stable, alert, [oriented x4, ][appropriate, ]GCS [15], moving all extremities spontaneously, pupils equal and reactive to light. Full physical exam performed and significant for very well-appearing male who is no acute distress. Obese, appropriate. Abdomen soft, nontender, nondistended. No flank tenderness. No overlying skin change. He does have a periumbilical hernia which is reducible. Differential includes UTI, cystitis, nephrolithiasis, prostatitis, diverticulitis, pancreatitis, chronic mesenteric ischemia, among others. Patient placed on continuous cardiac monitoring and continuous pulse ox with initial blood pressure 116/71, heart rate 102, saturation 95% on room air. Patient was given Toradol for symptomatic management[ and correction of underlying abnormalities]. Workup independently interpreted and significant for leukocytosis neutrophilia 19,000. Patient also has metabolic acidosis with respiratory compensation on blood gas. Urinalysis unconcerning, mild ketones. Glucose 200. Lactate 2.6. Results were relayed to patient, he states he still in mild pain. Given Toradol. CT abdomen pelvis ordered, this was pending at time of handoff to oncoming physician, Dr. Coleman. Armor Officer disclaimer Much of this encounter note is an electronic administrative job titles spoken language to printed text. Electronic administrative job titles of the spoken language may permit errors. Although I have reviewed the note, some errors may still exist. DO Jared: I assumed care of the patient at 1500. On my assessment, he is resting comfortably with improved symptoms and reassuring vital signs on cardiac telemetry. He is afebrile. CT scan demonstrates stranding around his kidney as well as around his bladder and prostate, concerning for potential infection. His urine could be indicative of infection with hematuria and some bacteria. Ultimately, he has leukocytosis, concerning findings for potential pyelonephritis, and very mildly elevated lactic acid, but he is afebrile with reassuring vital signs on my assessment after IF fluid resuscitation. I considered admission, but after shared decision-making with the patient, he states I want to go home. I advised to him he is high risk for sepsis given symptoms and labs. He expressed understanding and would like to go home with trial of abx. He was given a dose of IV Rocephin here in the emergency department prior to discharge as well as prescription for ciprofloxacin to take at home. I gave him very strict return precautions, as he is high risk for sepsis which I explained. Advised that he follow-up soon as possible for reassessment with his primary care provider. I advised that if he has fevers greater than 100.4 ?F at home or worsening symptoms, that he should return to the emergency department right away. He expressed understanding and agreement. He was discharged in stable condition. Critical Care <Pj Mckenzie MD - Last Filed: 01/08/24 16:00> Critical Care Time Critical Care Time: No
[2024-01-08 13:59] LABS: Basophils # 0.1 K/mm3 (0-0.2); Basophils % 0.3 % (0.1-2.0); Eosinophils % 0.2 % (0.1-12.0); Hematocrit 51.6 % (42.0-52.0); Hemoglobin 16.4 g/dL (14.1-18.0); Lymphocytes # 0.9 K/mm3 (0.7-4.5); Lymphocytes % 4.9 % (10-50); Mean Corpuscular HGB Conc 31.8 g/dL (31.8-35.4); Mean Corpuscular Hemoglobin 31.7 pg (27.0-31.2); Mean Corpuscular Volume 99.8 fl (80-94); Mean Platelet Volume 9.1 fl (7.4-10.4); Monocytes # 1.1 K/mm3 (0.1-1.0); Monocytes % 5.6 % (1.7-9.3); Neutrophils # 17.1 K/mm3 (1.8-7.8); Neutrophils % 88.9 % (37.0-80.0); Platelet Count 156 K/mm3 (142-424); Red Blood Count 5.16 M/mm3 (4.60-6.20); Red Cell Distribution Width 14.1 % (11.5-17.5); White Blood Count 19.2 K/mm3 (4.8-10.8)
[2024-01-08 14:01] LABS: Bilirubin,Urine 1+ (Negative)
[2024-01-08 14:06] LABS: MANUAL DIFFERENTIAL MANUAL DIFFERENTIAL (MANUAL DIFF)
[2024-01-08 14:07] LABS: Lactic Acid 2.6 mmol/L (0.7-2.1)
[2024-01-08 14:18] LABS: Bacteria,Urine Trace /lpf; Squamous Epithelial Cell,Urine Occasional #/hpf (0-5); WBC,Urine Occasional #/hpf (0-3)
[2024-01-08 14:53] LABS: Lymphocytes % 6 % (10-50); Monocytes % 5 % (2-9); Neutrophils % 89 % (42-76); Platelet Estimate Normal; RBC Morphology Normal; Total Cells Counted 100
--- NOTE | 2024-01-08 15:26 | CT_ITS ---
FINAL REPORT TECHNIQUE: Axial images through the abdomen and pelvis were performed. This study was performed with techniques to keep radiation doses as low as reasonably achievable, (ALARA). Individualized dose reduction techniques using automated exposure control or adjustment of mA and/or kV according to the patient's size were employed. CLINICAL HISTORY: lower abd pain, leukocytosis, lactic COMPARISON: None FINDINGS: CT ABDOMEN AND PELVIS WITH CONTRAST TECHNIQUE: IV contrast enhanced exam COMPARISON: None . FINDINGS: ABDOMEN: There are coarse left lower lobe linear densities present, consistent with atelectasis. Fatty infiltration of the liver is present. There is cholelithiasis without biliary ductal obstruction or acute inflammatory change. There is mild stranding in the right kidney without evidence of obstruction, that may be chronic although acute infection is not excluded. There is a soft tissue density in the left adrenal gland measuring 34 x 30 mm in size. There is a 10 mm stone present in the upper pole of the right kidney. A small upper pole left renal cyst is present. There is a central abdominal wall hernia that contains small bowel without evidence of obstruction. PELVIS: The appendix is normal in appearance, and there is no pericolonic inflammatory change to suggest diverticulitis. The prostate is enlarged, somewhat asymmetric to the left side, with stranding surrounding the left side of the prostate and bladder, that may represent cystitis and/or prostatitis. IMPRESSION: Prostate is enlarged asymmetrically to the left, with stranding surrounding the left side of the bladder and prostate, that may represent cystitis and/or prostatitis. Normal appendix, and no evidence of diverticulitis. Mild stranding around the right kidney without evidence of obstructive change, this may be chronic although infection is not excluded. Adrenal mass on the left side, 34 x 30 mm. Suggest either adrenal mass protocol CT or MRI for further evaluation as metastases or not excluded. Reviewed, Interpreted and Dictated by Jose Alberto Murphy MD Transcribed by Lakesha Contreras Authenticated and . [facility]
[2024-01-08] MEDS: IOPAMIDOL-370 (76%);100ML BOTTLE 75 ML IV (15:47)
[2024-01-08] MEDS: SODIUM CHLORIDE 0.9% 10ML SYR (RAD ONLY) 10 ML IV (15:47)
[2024-01-08] MEDS: LACTATED RINGERS 1000ML 1,000 ML 999 ML IV (16:09)
[2024-01-08] MEDS: KETOROLAC 30MG/ML VIAL 15 MG IV (16:09)
[2024-01-08] MEDS: CEFTRIAXONE SODIUM 2 GM in 0.9 % SODIUM CHLORIDE 100 ML IV (17:28)
[2024-01-08 17:51] LABS: Reflex Lactic Add Lactic Reflex
== END 2024-01-08 18:20 | disposition home or self-care (01) ==
PROVIDERS: Emergency Medicine; Emergency Provider Emergency Medicine; PCP Internal Medicine Adolescent Medicine
DX: N10 Acute pyelonephritis (principal); E86.0 Dehydration; R74.02 Elevation of levels of lactic acid dehydrogenase [LDH]; R50.9 Fever, unspecified; R30.0 Dysuria; R35.0 Frequency of micturition; N41.9 Inflammatory disease of prostate, unspecified; E11.9 Type 2 diabetes mellitus without complications; Z79.4 Long term (current) use of insulin; Z79.84 Long term (current) use of oral hypoglycemic drugs; I48.0 Paroxysmal atrial fibrillation; Z79.01 Long term (current) use of anticoagulants
CPT/HCPCS: 74177; 80053; 81001; 82803; 83605; 83690; 85007; 85025; 85027; 96361; 96365; 96375; 99285; J0696; J1885; J7120; Q9967

== ENCOUNTER 2024-02-08 14:31 | Outpatient (CLI) | payer MEDICAID, SELFPAY ==
[2024-02-08 15:19] LABS: Microscopic, Urine URINE MICROSCOPIC (MICROSCOPIC)
[2024-02-08 15:34] LABS: Blood Urea Nitrogen 12 mg/dl (9-20); Estimated Glomerular Filt Rate 87 ml/min (>60); GFR (African American) 105 ML/MIN (>60)
[2024-02-08 16:56] LABS: Appearance,Urine CLEAR (Clear); Bilirubin,Urine Negative (Negative); Blood, Urine 2+ (Negative); Color,Urine YELLOW (Yellow); Glucose,Urine (UA) 3+ (Negative); Ketones,Urine Negative (Negative); Leukocyte Esterase,Urine Negative (Negative); Nitrate,Urine Negative (Negative); PH,Urine 5.5 (5.0-8.5); Protein,Urine Negative (Negative); Specific Gravity, Urine 1.015 (1.005-1.030); Urobilinogen,Urine 0.2 EU/dl (0.2)
[2024-02-08 20:21] LABS: Bacteria,Urine 2+ /lpf; RBC,Urine 20-50 #/hpf (0-3); WBC,Urine 20-50 #/hpf (0-3)
[2024-02-10 14:16] LABS: PSA, Free 0.27 ng/mL; Prostate Specific Ag 2.3 ng/mL (0.0-4.0)
== END 2024-02-08 23:59 | disposition home or self-care (01) ==
LOC: LAB 14:32
PROVIDERS: PCP Family Medicine; Visit Provider Urology
DX: N40.1 Benign prostatic hyperplasia with lower urinary tract symptoms (principal); R39.12 Poor urinary stream; R39.14 Feeling of incomplete bladder emptying; E27.8 Other specified disorders of adrenal gland; N41.9 Inflammatory disease of prostate, unspecified
CPT/HCPCS: 36415; 81001; 82565; 84153; 84154; 84520; 87086

== ENCOUNTER 2024-02-24 08:00 | Outpatient (RCR) | payer MEDICAID, SELFPAY ==
--- NOTE | 2024-01-27 12:05 | HMH.PTOPEV ---
PT Outpatient Evaluation Rehab PT Outpatient Evaluation Start: 01/27/24 11:04 Freq: Status: Active Protocol: Document 01/27/24 11:04 PDESEROUX (Rec: 01/27/24 12:05 PDESEROUX Desktop) E-signed By Rosendo Fraire, PT Outpatient Therapy Subjective History Subjective History Pt. is a 58 year old male who presents to [facility] Outpatient Physical Therapy Services in [place] for the initial evaluation this date( 01/27/24) w/ c/o acute on chronic and intermittent B/L lumbar P!, stiffness, and weakness of insidious onset that has progressively gotten worse in the last few months. Pt. reports having an increased sedentary lifestyle 2.5 years ago after being diagnosed w/ Pneumonia. Pt. reports spending a week in the hospital, states he lost a lot of muscle strength from his increased sedentary lifestyle. Pt. reports he is unable to stand, ambulate for longer periods of time secondary to an increase in LBP!. Pt. reports having immediate symptom relief w/ he sits down. Pt. reports he doesn't go to [employer] anymore secondary to his LBP!. Pt. 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 Pt. denies having any recent diagnostic imaging nor injections for current complaint. Pt. denies bowel/ bladder dysfunction, denies saddle paresthesia. Current medications include Eliquis, Metformin, Lisinopril, Carvedilol, Vit. B-12, Lexapro , Lantus, Farxiga, and Atorvastatin. PMH includes A- fib, COPD, Prostatitis, DM-II, HTN, borderline Hyperlipidemia, and Sleep Apnea. New diagnosis of cancer in past 12 No months? Chief Complaint Pain,Stiff,Gives out/Unstable, Weakness Symptom Type Ache,Sharp,Dull,Stabbing Symptoms Relieved By Rest/Positioning Symptoms Aggravated By Standing,Physical Activity, Walking,Lifting Prior Functional Limitations None Current Functional Limitations Lifting,Housework,Standing, Recreation Activity,Walking Symptom Description Activity Dependent Level of pain today (0-10) 0 Pain scale - at its best (0-10) 0 Pain scale - at its worst (0-10) 8 Lumbopelvic Eval Posture Lumbar Spine Posture Standing Position Decreased Lordosis,Flexed Assistive device Assistive Devices None / NA Gait Observation General Gait Pattern Observation No Deviations/Normal Palapation tenderness bilateral lumbar spinal tenderness Yes: L3/L4/L5 Lumbar/Sacral Palpation Findings Tenderness Lumbar/Sacral Palpation Overall Comment grade 3 +TTP above Accessory Movement L-spine Vertebrae Accessory Movements Central P/A Ford,Right P/A that Elicit Symptoms Ford,Left P/A Ford L3 bilateral L4 bilateral L5 bilateral Range of Motion Lumbar Spine Active Flexion Range of 73 Motion (degrees) Lumbar Spine Active Extension Range of 26 Motion (degrees) Left Lumbar Spine Lateral Flexion Active 25 Range of Motion (degrees) Right Lumbar Spine Lateral Flexion 28 Active Range of Motion (degrees) Lumbar Spine ROM Limitations Soft Tissue Tightness,Pain Manual Muscle Test Bilateral Knee Extension Strength Grade 4 Good Knee Flexion Strength Grade 4 Good Hip Flexion Strength Grade 4- Good- Hip Abduction Strength Grade 4- Good- Hip Adduction Strength Grade 4- Good- Hip External Rotation Strength Grade 4 Good Hip Internal Rotation Strength Grade 4 Good Gluteus Rhett Strength Grade 4 Good Extensor Hallucis Longus Strength Grade 5 Normal Ankle Dorsiflexion Strength Grade 5 Normal Gastronemius/Soleus Strength Grade 5 Normal DTR Rt Patellar 2+ Lt Patellar 2+ Rt Gastroc/Soleus 0 Lt Gastroc/Soleus 0 Altered Sensation Bilateral Comment light touch discrimination vocalized symmetrical in BLEs Special Tests Lumbar Spine Screen Positive Sciatic Nerve Tension Test Negative Left,Negative Right Unilateral Straight Leg Raise (Lasegue) Negative Left,Negative Right Test Bilateral Straight Leg Raise Test Positive Crossed Straight Leg Raise Test Negative Left,Negative Right Lumbar Long [place] Distraction Test/Manual Positive Traction Outpatient Therapy Assessment Impairments Problems/Impairmments Palpation Tenderness,Impaired Range of Motion,Impaired Strength,Impaired Endurance, Impaired Walking,Impaired Standing,Impaired Lifting, Impaired Household Care, Impaired Recreational Activities,Impaired Work Activities,Subjective C/O Pain ,Impaired Self Care/Self Management Prognosis Rehab Potential Good Comment w/ HEP compliancy Clinical Impression Consistent with Diagnosis Yes Consistent with mechanical LBP! Short Term Goals Number of Weeks 2 Decreased Palpation Tenderness Yes: grade 1-2 +TTP to TTP assessment above Decrease Subjective C/O Pain Yes: worse:10/22 Patient to be Ind w/ HEP Yes Transmitter Engineer In Charge Goals Number of Weeks 4-6 Decreased Palpation Tenderness Yes: grade 1 +TTP to TTP assessment above Increase Range of Motion Yes: lumbar spine WFL grossly Increase Strength Yes: 4+ to 5/5 BLE MMT scores w/o difficulty Increase Ability to Walk Yes: Pt. will be able to ambulate/stand throughout [employer] visit w/o difficulty Increase Ability to Stand Yes: Pt. will be able to ambulate/stand throughout [employer] visit w/o difficulty Improve Ability For Household Care Yes: Pt. will be able to stand and shave w/o difficulty Improve Oswestry Score Yes Decrease Subjective C/O Pain Yes: worse:2-08/22 Patient to be Ind w/ Advanced HEP Yes Outpatient Therapy Plan of Care Treatment Plan May Include Therapeutic Exercise Including Home Yes Exercise Program Manual Therapy Techniques Yes Neuromuscular Re-education Yes Therapeutic Activities to Return to Yes Previous Functional/Work Level ADL/Self Care Education Yes Mechanical Traction Yes Dry Needling Yes Thermal Modalities Yes Electrical Stimulation Yes Ultrasound/Phonophoresis Yes Iontophoresis Yes Vasopneumatic Compression Pump Yes Massage Yes Eval/Re-Eval Yes Frequency Times per week 2 Duration Number of Weeks 4-6 Addendums This patient is a candidate for social No or vocational rehab? Patient/Guardian verbally acknowledges Yes understanding of treatment program and consents to further treatment? Patient/Guardian verbally acknowledges Yes understanding of diagnosis, prognosis and goals for treatment? Eval Complexity PT Charges 70464 - Low Complexity Shoulder/Elbow Eval Shoulder Objective Measurements Elbow Objective Measurements PHYSICIAN CERTIFICATION: I certify the specified therapy services for Naeem Bernal are required, authorized, and reviewed every 30 days.
== END 2024-02-29 15:36 | disposition home or self-care (01) ==
LOC: PT 08:00
PROVIDERS: Visit Provider Family Medicine
DX: M54.50 Low back pain, unspecified (principal)
CPT/HCPCS: 97110; 97140; 97163

== ENCOUNTER 2024-03-15 08:55 | Outpatient (CLI) | payer MEDICAID, SELFPAY ==
--- NOTE | 2024-03-15 08:56 | CT_ITS ---
FINAL REPORT CLINICAL HISTORY: adrenal mass COMPARISON: 01/08/2024 FINDINGS: CT ABDOMEN PELVIS WITH AND WITHOUT CONTRAST: The lung bases are clear. The liver is normal in size and attenuation. Multiple gallstones are noted in the gallbladder. The spleen is unremarkable. There is a 3 x 2.5 cm left adrenal mass noted on the prior CT of December 2023. Precontrast images show a mean attenuation value of 20 Hounsfield units. Immediate postcontrast images show a mean attenuation value of 60 Hounsfield units. Delayed images reveal a mean attenuation value of 32 Hounsfield units, which is greater than 60% washout. These findings are consistent with the diagnosis of adrenal adenoma. The pancreas is unremarkable. The kidneys enhance appropriately. No adenopathy is noted in the upper abdomen or pelvis. There is a anterior ventral hernia containing bowel, nonobstructed. The bladder is incompletely distended. The slight prominence of the prostate gland noted on the prior exam with adjacent stranding is no longer visualized. IMPRESSION: Adrenal protocol CT performed to evaluate a left adrenal mass, 3 x 2.5 cm in size. The enhancement and washout characteristics are consistent with an adrenal adenoma. Reviewed, Interpreted and Dictated by Jeferson Lopze MD Transcribed by Lakesha Contreras Authenticated and [facility]
[2024-03-15 09:10] LABS: Microscopic, Urine URINE MICROSCOPIC (MICROSCOPIC)
[2024-03-15 09:30] LABS: Appearance,Urine CLEAR (Clear); Bilirubin,Urine Negative (Negative); Blood, Urine 3+ (Negative); Color,Urine YELLOW (Yellow); Glucose,Urine (UA) 3+ (Negative); Ketones,Urine Negative (Negative); Leukocyte Esterase,Urine Negative (Negative); Nitrate,Urine Negative (Negative); Protein,Urine Negative (Negative); Urobilinogen,Urine 0.2 EU/dl (0.2)
[2024-03-15 09:48] LABS: Albumin Level 4.3 g/dl (3.5-5.0); Chloride 103 mmol/L (98-107); Potassium 4.3 mmoL/L (3.5-5.1); Sodium 140 mmol/L (136-145)
[2024-03-15 09:49] LABS: Bacteria,Urine Trace /lpf; RBC,Urine 20-50 #/hpf (0-3); Squamous Epithelial Cell,Urine Occasional #/hpf (0-5)
[2024-03-15 09:49] LABS: Hemoglobin A1C 8.6 % (4.0-6.0)
[2024-03-15 09:50] LABS: Alanine Aminotransferase 46 U/L (12-78); Aspartate Amino Transferase 55 U/L (17-59); Blood Urea Nitrogen 14 mg/dl (9-20); Estimated Glomerular Filt Rate 99 ml/min (>60); GFR (African American) 120 ML/MIN (>60)
[2024-03-15 09:51] LABS: Albumin/Globulin Ratio 1.2 (1.1-1.8); Alkaline Phosphatase 93 U/L (38-126); Anion Gap 12.3 mEq/L (5-15); Bilirubin,Total 1.4 mg/dl (0.2-1.3); Calcium 8.9 mg/dl (8.4-10.2); Carbon Dioxide 29 mmol/L (22.0-30.0); Chol/HDL Ratio 4.5 (1-3.5); Cholesterol 158 mg/dl (140-200); Globulin 3.7 g/dL (1.3-3.2); Glucose 232 mg/dl (74-100); HDL Cholesterol 35 mg/dl (40-60); Triglycerides 164 mg/dl (30-150); VLDL Cholesterol 33 mg/dL (0-40)
[2024-03-15 09:55] LABS: Basophils # 0.1 K/mm3 (0-0.2); Basophils % 1.3 % (0.1-2.0); Eosinophils # 0.3 K/mm3 (0.0-0.4); Eosinophils % 3.1 % (0.1-12.0); Hematocrit 54.2 % (42.0-52.0); Hemoglobin 17.5 g/dL (14.1-18.0); Lymphocytes # 1.9 K/mm3 (0.7-4.5); Lymphocytes % 21.1 % (10-50); Mean Corpuscular HGB Conc 32.2 g/dL (31.8-35.4); Mean Corpuscular Hemoglobin 31.5 pg (27.0-31.2); Mean Corpuscular Volume 97.8 fl (80-94); Mean Platelet Volume 9.2 fl (7.4-10.4); Monocytes # 0.5 K/mm3 (0.1-1.0); Monocytes % 5.8 % (1.7-9.3); Neutrophils # 6.3 K/mm3 (1.8-7.8); Neutrophils % 68.7 % (37.0-80.0); Platelet Count 234 K/mm3 (142-424); Red Blood Count 5.54 M/mm3 (4.60-6.20); White Blood Count 9.2 K/mm3 (4.8-10.8)
[2024-03-15 10:02] LABS: Direct LDL Cholesterol 80.39 mg/dL (100-129)
[2024-03-15 10:24] LABS: Thyroid Stimulating Hormone 3.28 uIU/mL (0.465-4.68)
[2024-03-15] MEDS: SODIUM CHLORIDE 0.9% 10ML SYR (RAD ONLY) 10 ML IV (10:34)
[2024-03-15] MEDS: IOPAMIDOL-370 (76%);100ML BOTTLE 75 ML IV (10:34)
== END 2024-03-15 23:59 | disposition home or self-care (01) ==
LOC: RAD 08:56
PROVIDERS: PCP Family Medicine; Visit Provider Urology
DX: E27.8 Other specified disorders of adrenal gland (principal); N40.1 Benign prostatic hyperplasia with lower urinary tract symptoms; N41.9 Inflammatory disease of prostate, unspecified; N39.0 Urinary tract infection, site not specified; I10 Essential (primary) hypertension; E78.2 Mixed hyperlipidemia; E11.69 Type 2 diabetes mellitus with other specified complication
CPT/HCPCS: 74177; 80050; 80053; 80061; 81001; 83036; 84443; 85025; Q9967

== ENCOUNTER 2024-03-16 09:56 | Outpatient (CLI) | payer MEDICAID, SELFPAY | END 2024-03-16 23:59 | disposition home or self-care (01) | LOC: RAD 10:00 | PROVIDERS: PCP Family Medicine; Visit Provider Urology | DX: Z79.899 Other long term (current) drug therapy (principal) ==

== ENCOUNTER 2024-03-21 15:37 | Outpatient (CLI) | payer MEDICAID, SELFPAY ==
[2024-03-21 14:56] LABS: Microscopic, Urine URINE MICROSCOPIC (MICROSCOPIC)
[2024-03-21 15:19] LABS: Appearance,Urine CLEAR (Clear); Bilirubin,Urine Negative (Negative); Blood, Urine 2+ (Negative); Color,Urine YELLOW (Yellow); Glucose,Urine (UA) 3+ (Negative); Ketones,Urine Negative (Negative); Leukocyte Esterase,Urine Negative (Negative); Nitrate,Urine Negative (Negative); PH,Urine 5.5 (5.0-8.5); Protein,Urine Negative (Negative); Urobilinogen,Urine 0.2 EU/dl (0.2)
[2024-03-21 15:54] LABS: Bacteria,Urine Trace /lpf
== END 2024-03-21 23:59 | disposition home or self-care (01) ==
LOC: LAB.DROPOF 15:37
PROVIDERS: PCP Urology; Visit Provider Urology
DX: N39.0 Urinary tract infection, site not specified (principal)
CPT/HCPCS: 81001

== ENCOUNTER → 2024-04-01 10:47 | Day surgery (SDC) | payer MEDICAID, SELFPAY ==
[2024-03-30 14:34] VITALS: BMI 39.9
[2024-04-01 11:09] VITALS: BP 154/95; PULSE 104; RESP 17; TEMP 36.6; O2SAT 95
--- NOTE | 2024-04-01 11:32 | HMH.PROCNOTE ---
[facility] Procedure Note Date: 04/01/24 Time: 11:32 Procedure Note:: Chart review: Patient is here for evaluation of 50 red cells per high-powered field. His CT scan with and without infusion shows an adrenal adenoma. Preop diagnosis: Hematuria Postop diagnosis: Hematuria Operative note: Patient was brought to the cystoscopy suite he is prepped and draped in the usual fashion. He underwent flexible cystoscopy. The anterior urethra is unremarkable. From the level of the verumontanum the patient has grade 1 prostate obstruction from bilateral lobes. The bladder itself is [place] pink in color throughout and free of stone tumor hemorrhage or infection. The ureteral orifice ease are normal bilaterally with clear E flux of urine. The patient tolerated the procedure well.
[2024-04-01] MEDS: LACTATED RINGERS 1000ML 1,000 ML 25 ML IV (11:33)
[2024-04-01 11:40] VITALS: BP 138/83; PULSE 73; RESP 18; O2SAT 97
[2024-04-01 19:33] LABS: POC Glucose,Bedside 132 (70-110)
== END | disposition home or self-care (01) ==
PROVIDERS: PCP Family Medicine; Visit Provider Urology
PROC: 0TJB8ZZ Inspection of Bladder, Via Natural or Artificial Opening Endoscopic (ICD-10-PCS; CPT 52000; principal; 2024-04-01 11:45)
DX: R31.9 Hematuria, unspecified (principal); N40.0 Benign prostatic hyperplasia without lower urinary tract symptoms
CPT/HCPCS: 52000; 82962; J7120

== ENCOUNTER 2024-08-30 14:45 | Outpatient (CLI) | payer MEDICAID, SELFPAY ==
[2024-08-30 20:04] LABS: Hemoglobin A1C 6.7 % (4.0-6.0)
[2024-08-30 21:31] LABS: Chloride 108 mmol/L (98-107); Potassium 4.8 mmoL/L (3.5-5.1); Sodium 141 mmol/L (136-145)
[2024-08-30 21:34] LABS: Alanine Aminotransferase 28 U/L (12-78); Albumin/Globulin Ratio 1.4 (1.1-1.8); Alkaline Phosphatase 107 U/L (38-126); Anion Gap 15.8 mEq/L (5-15); Aspartate Amino Transferase 30 U/L (17-59); Bilirubin,Total 0.7 mg/dl (0.2-1.3); Blood Urea Nitrogen 15 mg/dl (9-20); Carbon Dioxide 22 mmol/L (22.0-30.0); Estimated Glomerular Filt Rate 99 ml/min (>60); GFR (African American) 120 ML/MIN (>60); Globulin 2.9 g/dL (1.3-3.2); Glucose 132 mg/dl (74-100); Total Protein,Serum 6.9 g/dl (6.3-8.2)
[2024-08-30 22:21] LABS: Hepatitis C Ab Qual. W/ RFX NEGATIVE (Negative)
[2024-08-30 23:40] LABS: HIV Combo NEGATIVE (Negative)
== END 2024-08-30 23:59 | disposition home or self-care (01) ==
LOC: LAB.DROPOF 08-31 09:16
PROVIDERS: PCP Family Medicine; Visit Provider Family Medicine
DX: E11.69 Type 2 diabetes mellitus with other specified complication (principal); Z11.59 Encounter for screening for other viral diseases; Z11.4 Encounter for screening for human immunodeficiency virus [HIV]
CPT/HCPCS: 80053; 83036; 86803; 87389

== ENCOUNTER 2024-09-07 13:21 | Outpatient (CLI) | payer MEDICAID, SELFPAY ==
[2024-09-07 13:24] LABS: Adenovirus F 40/41, stool Not Detected (NotDetected); Astrovirus Not Detected (NotDetected); Campylobacter Not Detected (NotDetected); Clostridium Difficile A/B, PCR Not Detected (NotDetected); Cryptosporidium Not Detected (NotDetected); Cyclospora Cayetanesis Not Detected (NotDetected); Entamoeba histolytica Not Detected (NotDetected); Enteroaggregative E coli Not Detected (NotDetected); Enteropathogenic E coli Not Detected (NotDetected); Enterotoxigenic E coli Not Detected (NotDetected); Giardia lamblia Not Detected (NotDetected); Norovirus Not Detected (NotDetected); Plesimonas Shigalloides, PCR Not Detected (NotDetected); Rotavirus A Not Detected (NotDetected); Salmonella, PCR Not Detected (NotDetected); Sapovirus Not Detected (NotDetected); Shiga-like toxin E coli Not Detected (NotDetected); Shigella Enterovasive E coli Not Detected (NotDetected); Vibrio Cholerae Not Detected (NotDetected); Vibrio, PCR Not Detected (NotDetected); Yersinia Entercolitica, PCR Not Detected (NotDetected)
== END 2024-09-07 23:59 | disposition home or self-care (01) ==
LOC: LAB 13:22
PROVIDERS: PCP Family Medicine; Visit Provider Family Medicine
DX: R19.7 Diarrhea, unspecified (principal)
CPT/HCPCS: 87507